=== PATIENT | female | born 1985 | race Caucasian/White ===

== ENCOUNTER → 2016-06-06 | Outpatient (CLI) | payer OTHER ==
[~2016-06-06] MED LIST: ACET50TA PO; DOCU10CA PO; MOTR200T44 PO
[2016-06-06 13:42] LABS: BASO % 0.2 % (0.0-1.0); EOS # 0.1 K/mm3 (0.0-0.50); EOS % 1.2 % (0.0-3.0); LARGE UNSTAINED CELL # 0.1 K/mm3 (0.0-0.4); LARGE UNSTAINED CELL % 1.8 % (0.0-4.0); LYMPH # 1.8 K/mm3 (1.5-4.5); LYMPH % 26.6 % (24.0-44.0); MEAN CORPUSCULAR HEMOGLOBIN 29.5 pg (27.0-33.0); MEAN CORPUSCULAR HGB CONC 32.7 g/dl (32.0-36.5); MEAN CORPUSCULAR VOLUME 90.1 fl (80.0-96.0); MONO # 0.4 K/mm3 (0.0-0.8); MONO % 5.5 % (0.0-5.0); NEUTROPHILS # 4.4 K/mm3 (1.8-7.7); NEUTROPHILS % 64.8 % (36.0-66.0); PLATELET COUNT, AUTOMATED 240 k/mm3 (150-450); RED CELL DISTRIBUTION WIDTH 13.5 % (11.5-14.5); WHITE BLOOD COUNT 6.9 K/mm3 (4.0-10.0)
== END ==
LOC: M SMT 11:02
PROVIDERS: ATTEND Specialist
DX: Z36 Encounter for antenatal screening of mother (principal)
CPT/HCPCS: 36415; 85025; 86850; 86900; 86901; J2790

== ENCOUNTER → 2016-06-09 | Outpatient (REF) | payer OTHER | LOC: M LAB REF 11:40 | PROVIDERS: ATTEND Obstetrics & Gynecology | DX: Z36 Encounter for antenatal screening of mother (principal) ==

== ENCOUNTER → 2016-06-12 | Outpatient (CLI) | payer OTHER ==
--- NOTE | 2016-06-12 15:15 | REP ---
Clinical: Reevaluate aorta and cardiac ventricular outflow tracts. Comparison: None. Findings: Ultrasound examination demonstrates a single live advanced gestation in cephalic presentation. motion was identified by technologist. The placenta is noted posteriorly and grade 1 without evidence for placenta previa or abruption. Amniotic fluid volume is normal. Gestational age by LMP 36 weeks 6 days with BECKA 07/04/2016. Gestational age by current measurements 36 weeks 5 days BECKA 07/05/2016. FHR equals 147 beats per minute. Amniotic fluid index equals 10.9 cm. SD ratio equals 2.45. BPD 8.9 cm 35 weeks 6 days HC 32.6 cm 37 weeks 0 days AC 32.1 cm 36 weeks 0 days FL 7.4 cm 38 weeks 0 days HC/AC ratio 1.02 Estimated weight 2978 grams (48th percentile). Anatomical assessment demonstrates normal cranium, facial features, lungs, three-vessel cord, kidneys/bladder. Impression: Single live advanced gestation in cephalic presentation. Limited anatomical assessment as above. No gross abnormalities are identified. Aorta and cardiac ventricle outflow tracts were not evaluated due to positioning and advanced age. Signed by Cordell Deng MD 06/12/2016 03:06 P
== END ==
LOC: M SMT 14:00
PROVIDERS: ATTEND Obstetrics & Gynecology
DX: Z36 Encounter for antenatal screening of mother (principal); Z3A.36 36 weeks gestation of pregnancy

== ENCOUNTER 2016-06-28 04:24 | Inpatient (IN) | payer OTHER ==
[~2016-06-28] VITALS: Ht 165.1 cm; Wt 80.0 kg
[2016-06-28] MEDS ORDERED: OXYTOCIN DRIP 30 UNITS in APPROPRIATE DILUENT 1 EA IV SCH (05:04)
[2016-06-28] MEDS: LR 1,000 ML IV SCH ×2 (05:04→13:04)
[2016-06-28 05:11] LABS: BASO % 0.1 % (0.0-1.0); EOS % 0.2 % (0.0-3.0); LARGE UNSTAINED CELL # 0.1 K/mm3 (0.0-0.4); LARGE UNSTAINED CELL % 0.8 % (0.0-4.0); LYMPH # 0.9 K/mm3 (1.5-4.5); MEAN CORPUSCULAR HEMOGLOBIN 29.6 pg (27.0-33.0); MEAN CORPUSCULAR HGB CONC 32.8 g/dl (32.0-36.5); MEAN CORPUSCULAR VOLUME 90.5 fl (80.0-96.0); MONO # 0.3 K/mm3 (0.0-0.8); MONO % 3.2 % (0.0-5.0); NEUTROPHILS # 9.2 K/mm3 (1.8-7.7); NEUTROPHILS % 87.7 % (36.0-66.0); PLATELET COUNT, AUTOMATED 202 k/mm3 (150-450); RED CELL DISTRIBUTION WIDTH 14.2 % (11.5-14.5); WHITE BLOOD COUNT 10.4 K/mm3 (4.0-10.0)
[2016-06-28] MEDS ORDERED: IBUPROFEN 800 MG TAB PO PRN (05:15)
[2016-06-28] MEDS ORDERED: DOCUSATE SODIUM 100 MG CAP PO PRN (05:15)
[2016-06-28] MEDS ORDERED: RHOGAM 300 MCG (1500 IU) INJ (J2790) IM SCH (05:15)
[2016-06-28] MEDS ORDERED: ONDANSETRON 4MG/2ML VIAL (J2405) IV PRN (05:15)
[2016-06-28] MEDS ORDERED: ACETAMINOPHEN 500 MG TAB PO PRN (05:15)
[2016-06-28] MEDS ORDERED: MEASLES,MUMPS,RUBELLA VACCINE INJ (MMR-II) (90707) SC SCH (05:15)
[2016-06-28] MEDS ORDERED: DIBUCAINE 1% OINTMENT 30GM TOP PRN (05:15)
[2016-06-28] MEDS ORDERED: PROMETHAZINE 25 MG TAB PO PRN (05:15)
[2016-06-28] MEDS ORDERED: LIDOCAINE 1% MDV INJ 50 ML VIAL INFIL ONE (06:00)
[2016-06-28 06:19] VITALS: BP 91/52
[2016-06-28] MEDS: PRENATAL VITAMIN TAB PO SCH (09:00)
[2016-06-28 18:00] VITALS: BP 106/61
[2016-06-29 06:17] VITALS: BP 99/61
[2016-06-29] MEDS: PRENATAL VITAMIN TAB PO SCH (08:53)
[2016-06-29 18:00] VITALS: BP 124/60
[2016-06-30 06:14] VITALS: BP 122/72
[2016-06-30] MEDS ORDERED: TYLE325T5 PO (08:04)
[2016-06-30] MEDS ORDERED: MOTR200T44 PO (08:04)
[2016-06-30] MEDS ORDERED: PRENTAB40 PO (08:06)
== END 2016-06-30 10:30 | disposition home or self-care (01) | DRG 776 ==
LOC: M LDI 04:24 → M OBS 06:18
PROVIDERS: ADMIT Obstetrics & Gynecology; ATTEND Obstetrics & Gynecology
PROC: 0HQ9XZZ Repair Perineum Skin, External Approach (ICD-10-PCS; principal; 2016-06-28)
DX: O70.0 First degree perineal laceration during delivery (principal); Z3A.39 39 weeks gestation of pregnancy

== ENCOUNTER → 2018-01-15 | Outpatient (REF) | payer OTHER ==
[2018-01-15 19:54] LABS: CHLAMYDIA DNA AMPLIFICATION NEGATIVE (NEGATIVE); GC DNA AMPLIFICATION NEGATIVE (NEGATIVE)
== END ==
LOC: M LAB REF 17:05
DX: Z11.3 Encounter for screening for infections with a predominantly sexual mode of transmission (principal)

== ENCOUNTER 2018-01-17 04:16 | Emergency (ER) | payer OTHER ==
[2018-01-17 05:25] LABS: HEMOGLOBIN 10.6 g/dl (12.0-15.5); MEAN CORPUSCULAR HEMOGLOBIN 30.5 pg (27.0-33.0); MEAN CORPUSCULAR HGB CONC 34.2 g/dl (32.0-36.5); MEAN CORPUSCULAR VOLUME 89.1 fl (80.0-96.0); PLATELET COUNT, AUTOMATED 246 10^3/uL (150-450); RED BLOOD COUNT 3.48 10^6/uL (4.00-5.40); RED CELL DISTRIBUTION WIDTH 12.6 % (11.5-14.5); WHITE BLOOD COUNT 6.2 10^3/uL (4.0-10.0)
[2018-01-17 05:37] LABS: CONTROL LINE HCG INT CTR LINE PRESENT; HCG, SERUM QUALITATIVE POSITIVE (NEGATIVE)
[2018-01-17 05:42] LABS: ANION GAP 7 MEQ/L (8-16); BLOOD UREA NITROGEN 11 MG/DL (7-18); CARBON DIOXIDE LEVEL 27 MEQ/L (21-32); CHLORIDE LEVEL 107 MEQ/L (98-107); CREATININE FOR GFR 0.74 MG/DL (0.55-1.30); GLOMERULAR FILTRATION RATE > 60.0 (>60); GLUCOSE, FASTING 108 MG/DL (70-100); POTASSIUM SERUM 3.5 MEQ/L (3.5-5.1); SODIUM LEVEL 141 MEQ/L (136-145)
[2018-01-17] MEDS: NS 1,000 ML IV ×2 (06:15→10:37)
[2018-01-17 06:24] LABS: HCG, SERUM QUANTITATIVE 193 MIU/ML
[2018-01-17 09:15] LABS: HEMATOCRIT 27.5 % (36.0-47.0); HEMOGLOBIN 9.3 g/dl (12.0-15.5)
[2018-01-17 10:52] LABS: TYPE AND SCREEN 1 1
[2018-01-17 14:06] LABS: HEMATOCRIT 27.6 % (36.0-47.0); HEMOGLOBIN 9.3 g/dl (12.0-15.5); MEAN CORPUSCULAR HEMOGLOBIN 30.4 pg (27.0-33.0); MEAN CORPUSCULAR HGB CONC 33.7 g/dl (32.0-36.5); MEAN CORPUSCULAR VOLUME 90.2 fl (80.0-96.0); PLATELET COUNT, AUTOMATED 227 10^3/uL (150-450); RED BLOOD COUNT 3.06 10^6/uL (4.00-5.40); RED CELL DISTRIBUTION WIDTH 12.7 % (11.5-14.5); WHITE BLOOD COUNT 5.3 10^3/uL (4.0-10.0)
== END 2018-01-17 17:20 | disposition home or self-care (01) ==
LOC: M ED 04:16
DX: N93.9 Abnormal uterine and vaginal bleeding, unspecified (principal); D50.0 Iron deficiency anemia secondary to blood loss (chronic); Z32.01 Encounter for pregnancy test, result positive
CPT/HCPCS: 76801

== ENCOUNTER → 2018-01-22 | Outpatient (CLI) | payer OTHER ==
[2018-01-22 13:40] LABS: HEMATOCRIT 32.5 % (36.0-47.0); HEMOGLOBIN 10.6 g/dl (12.0-15.5); MEAN CORPUSCULAR HEMOGLOBIN 29.7 pg (27.0-33.0); MEAN CORPUSCULAR HGB CONC 32.6 g/dl (32.0-36.5); PLATELET COUNT, AUTOMATED 292 10^3/uL (150-450); RED BLOOD COUNT 3.57 10^6/uL (4.00-5.40); RED CELL DISTRIBUTION WIDTH 12.7 % (11.5-14.5); WHITE BLOOD COUNT 5.4 10^3/uL (4.0-10.0)
[2018-01-22 13:57] LABS: HCG, SERUM QUANTITATIVE 100 MIU/ML
== END ==
LOC: M SMT 09:39
DX: O03.4 Incomplete spontaneous abortion without complication (principal)
CPT/HCPCS: 84702

== ENCOUNTER → 2018-02-12 | Outpatient (CLI) | payer OTHER ==
[2018-02-12 13:43] LABS: HCG, SERUM QUANTITATIVE 18 MIU/ML
== END ==
LOC: M SMT 08:24
DX: O03.4 Incomplete spontaneous abortion without complication (principal)
CPT/HCPCS: 84702

== ENCOUNTER → 2018-03-08 | Outpatient (CLI) | payer OTHER ==
[2018-03-08 10:17] LABS: HEMATOCRIT 33.3 % (36.0-47.0); HEMOGLOBIN 10.9 g/dl (12.0-15.5); MEAN CORPUSCULAR HEMOGLOBIN 28.4 pg (27.0-33.0); MEAN CORPUSCULAR HGB CONC 32.7 g/dl (32.0-36.5); MEAN CORPUSCULAR VOLUME 86.7 fl (80.0-96.0); PLATELET COUNT, AUTOMATED 293 10^3/uL (150-450); RED BLOOD COUNT 3.84 10^6/uL (4.00-5.40); RED CELL DISTRIBUTION WIDTH 12.6 % (11.5-14.5); WHITE BLOOD COUNT 5.2 10^3/uL (4.0-10.0)
[2018-03-08 11:04] LABS: HCG, SERUM QUANTITATIVE < 1.0 MIU/ML
== END ==
LOC: M SMT 08:27
DX: O03.4 Incomplete spontaneous abortion without complication (principal)
CPT/HCPCS: 84702

== ENCOUNTER 2018-11-28 15:09 | Day surgery (SDC) | payer OTHER ==
[~2018-11-28] VITALS: Ht 165.1 cm; Wt 69.4 kg
[~2018-11-28 15:09] MED LIST changes: +ACET1TAB55 PO; -ACET50TA PO; +DOXYCYCLINE HYCLATE 100 MG in D5W MINI-BAG PLUS 100 ML IV ONE; +LIDOCAINE 1% MDV 20ML VIAL SQ PRN; +LR 1,000 ML IV ONE; +MAPA500T2 PO; +PRENTAB40 PO; +TYLE325T5 PO
[2018-11-28 16:10] LABS: HEMATOCRIT 36.4 % (36.0-47.0); HEMOGLOBIN 12.4 g/dl (12.0-15.5); MEAN CORPUSCULAR HEMOGLOBIN 29.7 pg (27.0-33.0); MEAN CORPUSCULAR HGB CONC 34.1 g/dl (32.0-36.5); MEAN CORPUSCULAR VOLUME 87.1 fl (80.0-96.0); PLATELET COUNT, AUTOMATED 251 10^3/uL (150-450); RED BLOOD COUNT 4.18 10^6/uL (4.00-5.40); WHITE BLOOD COUNT 6.7 10^3/uL (4.0-10.0)
[2018-11-28] MEDS ORDERED: SILVER NITRATE APPLICATOR As Ordered ONE (16:29)
[2018-11-28] MEDS ORDERED: METHYLERGONOVINE MALEATE 0.2 MG/ML VIAL (J2210) As Ordered ONE (17:31)
[2018-11-28] MEDS ORDERED: miSOPROStol 200 MCG TAB (S0191) As Ordered ONE (18:00)
[2018-11-28] MEDS ORDERED: METH0.2T53 PO (18:31)
[2018-11-28] MEDS ORDERED: IBUP80TA PO (18:32)
[2018-11-28] MEDS ORDERED: METOCLOPRAMIDE INJ 10MG/2ML VIAL (J2765) IV PRN (18:45)
[2018-11-28] MEDS ORDERED: fentaNYL 100 MCG/2 ML INJECTION (J3010) IV PRN (18:45)
[2018-11-28] MEDS ORDERED: PROMETHAZINE INJ 25 MG/ML VIAL (J2550) IV PRN (18:45)
[2018-11-28] MEDS ORDERED: PERCOCET 5MG/325MG TAB PO PRN (18:45)
[2018-11-28] MEDS ORDERED: ONDANSETRON 4MG/2ML VIAL (J2405) IV PRN (18:45)
[2018-11-28] MEDS ORDERED: LR 1,000 ML IV SCH ×2 (18:45)
[2018-11-28 18:51] LABS: HEMATOCRIT 23.5 % (36.0-47.0); MEAN CORPUSCULAR HEMOGLOBIN 29.8 pg (27.0-33.0); MEAN CORPUSCULAR HGB CONC 32.8 g/dl (32.0-36.5); MEAN CORPUSCULAR VOLUME 91.1 fl (80.0-96.0); PLATELET COUNT, AUTOMATED 154 10^3/uL (150-450); RED BLOOD COUNT 2.58 10^6/uL (4.00-5.40); WHITE BLOOD COUNT 6.7 10^3/uL (4.0-10.0)
[2018-11-28 18:54] LABS: HEMOGLOBIN 7.7 g/dl (12.0-15.5)
[2018-11-28] MEDS ORDERED: DOXYCYCLINE HYCLATE 100 MG TAB PO ONE (19:00)
[2018-11-28] MEDS ORDERED: RHOGAM 300 MCG (1500 IU) INJ (J2790) IM SCH (19:00)
[2018-11-28] MEDS ORDERED: METHYLERGONOVINE MALEATE 0.2 MG TAB PO ONE (19:00)
--- NOTE | 2018-11-28 19:29 | RO ---
DATE OF PROCEDURE: 11/28/2018 PREOPERATIVE DIAGNOSIS: First trimester miscarriage/missed at 12 weeks estimated gestational age. POSTOPERATIVE DIAGNOSIS: First trimester miscarriage/missed at 12 weeks estimated gestational age. PROCEDURE PERFORMED: Suction dilatation, curettage and evacuation. SURGEON: Alan Moulton DO MEAT SOAKER: AMY Hanson III ANESTHESIA TYPE: General endotracheal. SPECIMENS SENT TO PATHOLOGY: Products of conception, intrauterine tissue. ESTIMATED BLOOD LOSS: 1200 mL FLUIDS REPLACED: 2300 mL lactated Ringer's. DRAINS: In-and-out catheter, 20 mL urine output. COMPLICATIONS: None. PREOPERATIVE ANTIBIOTICS: Doxycycline 100 mg IV times one. INTRAOPERATIVE FINDINGS: Uterus sounded to 12 cm. At the conclusion of the case, the uterus sounded to approximately 8-10 cm. There was a thin endometrial stripe, less than 2 mm of thickness at the conclusion of the procedure. This was done via bedside transvaginal ultrasound. Uterotonics administered: Methergine 0.2 mg IM times one, Cytotec 800 mcg per rectum times one. INDICATION: The patient is a 33-year-old (G) 6, para (P) 4-0-2-4, recently diagnosed with a 12-week first trimester intrauterine embryonic demise. She has elected to proceed with surgical management via suction D and C and evacuation. DESCRIPTION OF PROCEDURE: The patient was counseled and consented on the risks, benefits, indications, and alternatives of the procedure and informed consent was obtained. She was taken to operating room with an IV running, placed on the operating table in the dorsal supine position. General anesthesia was administered, and the airway secured without any difficulty. She was placed in a high lithotomy position. She was prepared and draped in a normal sterile fashion. A time-out was performed per protocol. The bladder was drained with a sterile in-and-out catheter. A sterile speculum placed with good visualization of the cervix. The anterior lip of the cervix was grasped with single-tooth tenaculum and downward traction was applied. The cervix then sequentially dilated to accommodate a size 12 curved Vacurette. The size 12 curved Vacurette was placed transcervically into the intrauterine cavity to the level of the fundus and suction was applied. This was done with multiple passes. During each pass, some tissue was noted at the level of the external os. Ring forceps were used to grasp tissue to remove the tissue from the uterus. After multiple passes of the Vacurette, minimal tissue return was noted. Bleeding was brisk at this time and so uterotonics were administered. Continued suction was administered until a low level of bleeding was noted. To confirm that all products of conception were removed, a transvaginal ultrasound was performed and a thin endometrial stripe was noted approximately 2 mm in thickness and homogeneous from cervix to fundus, thus indicating removal of all the products of conception. The uterus had clamped down to about 8-10 weeks size. Minimal bleeding from the cervical os was noted after prolonged observation in the operating room. The single-tooth tenaculum sites were noted to be hemostatic. The sponge, lap, needle and instrument counts were correct. The patient tolerated the entire procedure very well. CBC was ordered in the post-anesthesia care unit (PACU). She was transferred to the PACU in good and stable condition with normal vital signs. WALLACE
[2018-11-28 20:43] VITALS: BP 127/73
== END 2018-11-28 20:43 | disposition home or self-care (01) ==
LOC: M SDC 15:09
PROVIDERS: ATTEND Obstetrics & Gynecology
DX: O02.1 Missed abortion (principal)
CPT/HCPCS: 36415; 59820; 85027; 86850; 86900; 86901; 88305; J2210; J2790